=== PATIENT | female | born 1955 | race Caucasian/White ===

== ENCOUNTER 2017-06-19 00:05 | Emergency (ER) | payer BC, OTHER ==
[~2017-06-19] VITALS: Ht 160 cm; Wt 65.3 kg
--- NOTE | ~2017-06-19 | DIAG ---
[facility] [address] [facility] [address] [place], [place] [address] Draft DATE OF STUDY: 06/19/2017 STUDY: Holter monitor. INDICATION: This is a 61-year-old female referred for evaluation of palpitations. SUMMARY REPORT: The patient was monitored for 48 hours and 13 minutes. There was total of 10 hours of artifact, total beats recorded 130,956 beats. The patient was predominantly in sinus rhythm with average heart rate of 56 beats per minute. Minimum heart rate 42 beats per minute, noted to be sinus bradycardia and maximum heart rate of 100 beats per minute. Arrhythmia was noted as rare premature atrial and ventricular contractions. CONCLUSION: 1. This is a 48-hour Holter monitor, however, there was 10 hours of artifact that were removed, total beats recorded 130,956 beats. 2. The patient was predominantly in sinus rhythm with poor correlation between patient triggered events and recorded arrhythmia. 3. Average heart rate was 56 beats per minute, minimum heart rate 42 beats per minute, and maximum heart rate 100 beats per minute. 4. Arrhythmia was noted as rare premature atrial and ventricular contraction. Darnell Giron MD MA/NICOLAS /[id number] LITA Bhakta M.D. PATIENT NAME: NATE NOLAND DIAGNOSTIC STUDY DATE OF : 51 PHYSICIAN: DARNELL GIRON MD REPORT #: [id number] REPORT IS CONFIDENTIAL AND NOT TO BE RELEASED WITHOUT AUTHORIZATION
[~2017-06-19 00:05] MED LIST: ESTRADIOL2 MG PO; HYDROXYZINE HCL25 MG PO; LEVOTHYROXINE125 MCG PO; LIPITOR40 MG PO; LORAZEPAM1 MG PO; NEURONTIN600 MG PO; OMEPRAZOLE20 MG PO; OXYCODONE HCL10 MG PO; OXYCONTIN10 MG PO; ZOLPIDEM TARTRA10 MG PO
--- NOTE | 2017-06-20 17:48 | EKG ---
[facility] [address] [facility] [place] [address] Signed Normal sinus rhythm Possible Left atrial enlargement Borderline ECG No previous ECGs available Confirmed by GABI RAPP MD ([id number]) on 06/20/2017 5:47:54 PM Electronically Signed By: GABI RAPP MD 06/20/17 1748 PATIENT NAME: NATE NOLAND Electrocardiogram DATE OF : 51 PHYSICIAN: GABI RAPP MD REPORT #: [id number] REPORT IS CONFIDENTIAL AND NOT TO BE RELEASED WITHOUT AUTHORIZATION
== END 2017-06-19 03:54 | disposition home or self-care (01) ==
LOC: ED 00:05
DX: R55 Syncope and collapse (principal); S09.90XA Unspecified injury of head, initial encounter; E03.9 Hypothyroidism, unspecified; E78.00 Pure hypercholesterolemia, unspecified; F17.200 Nicotine dependence, unspecified, uncomplicated; Z88.8 Allergy status to other drugs, medicaments and biological substances; Z79.899 Other long term (current) drug therapy; W19.XXXA Unspecified fall, initial encounter
CPT/HCPCS: 70450; 80053; 83735; 84484; 85025; 85610; 85730; 93005; 93010; 93225; 93226; 93227; 99284

== ENCOUNTER 2018-02-12 10:05 | Day surgery (SDC) | payer BC ==
[~2018-02-12] VITALS: Ht 160 cm; Wt 61.7 kg
--- NOTE | 2018-02-12 12:00 | NUR ---
02/12/18 Shelby Fisher 1152- PT ARRIVES TO PACU WITH EYES CLOSED, ASLEEP. PT RESPONDS TO VERBAL STIMULI AND OPENS EYES. PT ABLE TO ANSWER QUESTIONS AND STATES THAT SHE DOES NOT HAVE PAIN OR NAUSEA. PT STABLE ON RA SATING 90-93%.
--- NOTE | 2018-02-13 09:08 | OR ---
[facility] [address] [place], [place] [address] Signed DATE OF OPERATION: 02/12/2018 SURGEON: Reanna Hicks MD PREOPERATIVE DIAGNOSIS: Persistent weight loss and poor appetite. POSTOPERATIVE DIAGNOSES: 1. Prepyloric antral gastritis. 2. Normal-appearing colon. PROCEDURES PERFORMED: 1. Esophagogastroduodenoscopy with biopsy. 2. Total colonoscopy. ANESTHESIA: Intravenous sedation fentanyl 200 mcg, Versed 10 mg. INDICATION: This 62-year-old white woman is a patient of Dr. Bhakta and well known to me from the past. She works as an emergency room nurse, semi-retired now. She continues to smoke one pack of cigarettes a day. In the past six months she has lost about 30 pounds of weight. She has had decreased appetite, but no associated abdominal pain. She feels "sick at the thought of food." She has had some iron deficiency, which has been treated with iron medication, which improved her symptoms. She has chronic back pain and spinal infusion device with Dilaudid. This is being weaned. She still smokes a pack of cigarettes a day, though she underwent a rather extensive evaluation in the past few years for mediastinal lymphadenopathy and periesophageal lymphadenopathy, which seemed to resolve with further followup. She is admitted at this time to undergo upper endoscopy, and colonoscopy to better characterize her current symptoms. She understands the risks of bleeding, infection, and perforation related to colonoscopy and upper endoscopy and wished to proceed. FINDINGS: Upper endoscopy showed no abnormality other than mild prepyloric antral gastritis. She had no ulceration or neoplasm. No sign of lymphoma. Colonoscopy showed a well prepped bowel. There was no sign of polyps, diverticular formation, colitis, or cancer. Electronically Signed By: REANNA HICKS MD 02/13/18 0908 PATIENT NAME: NATE NOLAND OPERATIVE REPORT DATE OF : 51 REPORT #: [id number] PHYSICIAN: REANNA HICKS MD PCP: KALA BHAKTA MD REPORT IS CONFIDENTIAL AND NOT TO BE RELEASED WITHOUT AUTHORIZATION [facility] [address] [place], [place] [address] Signed She does have a fair amount of tolerance to pain medication on the basis of her infusion device as may have been expected. DESCRIPTION OF PROCEDURE: The patient was brought to the endoscopy suite, and given topical Hurricaine spray hypopharyngeal anesthesia, and placed in lateral decubitus position, and given intravenous sedation to the point of slurred speech, and nystagmus. An Olympus video upper endoscope was passed in the hypopharynx after placement of a bite block. Esophagus status length was normal. Scope was advanced to the stomach, which was insufflated with air. Gastric juices suctioned free. There was no sign of bile within the stomach. The pylorus appeared reasonably normal. Scope was passed through into the duodenum, which was normal. Scope was withdrawn in the prepyloric antrum, had mild antral gastritis, but not much and certainly no ulceration or neoplasm. Biopsies were obtained for both PATRICIA and pathologic testing. Retroflexed view was undertaken showing a reasonable flap valve in proximal stomach, otherwise normal. Scope was straightened, withdrawn to the distal esophagus, and plans made for colonoscopy. The table was rotated and additional sedation given and digital rectal examination undertaken, which was normal. An Olympus video colonoscope was passed in the rectum and manipulated throughout the colon. She had a fair amount of discomfort requiring additional sedation no doubt related to tolerance from her usual medications of Duramorph through infusion. Ultimately, the right colon was entered and the cecum was visualized, but not intubated proper. Further attempts at intubation were not likely possible, and definitely not well tolerated given her resistance to pain medications. The scope was withdrawn from that point and, examination throughout showed no sign of abnormality. The scope was removed, and the patient was taken to recovery room in good condition. CONCLUDING DIAGNOSIS: Mild amount of prepyloric antral gastritis. No sign of ulcer or neoplasm. Normal colon. PLAN: On short-term we will recommend Prilosec 20 mg p.o. daily. An evaluation of ultrasound and CCK-HIDA test has been outlined, and will confirm that those tests are done. MD CLINT Sahu/MODL Electronically Signed By: REANNA HICKS MD 02/13/18907 PATIENT NAME: NATE NOLAND OPERATIVE REPORT DATE OF : 51 REPORT #: [id number] PHYSICIAN: REANNA HICKS MD PCP: KALA BHAKTA MD REPORT IS CONFIDENTIAL AND NOT TO BE RELEASED WITHOUT AUTHORIZATION [address] [address] Signed /[id number] cc: Dr. Bhakta. Copies: ~ Electronically Signed By: REANNA HICKS MD 02/13/18 0908 PATIENT NAME: NATE NOLAND OPERATIVE REPORT DATE OF : 51 REPORT #: [id number] PHYSICIAN: REANNA HICKS MD PCP: KALA BHAKTA MD REPORT IS CONFIDENTIAL AND NOT TO BE RELEASED WITHOUT AUTHORIZATION
== END 2018-02-12 12:40 | disposition home or self-care (01) ==
LOC: OPS 10:05 → DS 10:05 → OPS 11:00 → DS 13:00
PROVIDERS: Surgery
PROC: 0DJD8ZZ Inspection of Lower Intestinal Tract, Via Natural or Artificial Opening Endoscopic (ICD-10-PCS; principal; 2018-02-12 11:00)
PROC: 0DB78ZX Excision of Stomach, Pylorus, Via Natural or Artificial Opening Endoscopic, Diagnostic (ICD-10-PCS; 2018-02-12 11:00)
DX: K29.50 Unspecified chronic gastritis without bleeding (principal); R63.4 Abnormal weight loss; R63.0 Anorexia; R59.0 Localized enlarged lymph nodes; E11.9 Type 2 diabetes mellitus without complications; E03.9 Hypothyroidism, unspecified; E78.5 Hyperlipidemia, unspecified; F17.210 Nicotine dependence, cigarettes, uncomplicated; Z98.890 Other specified postprocedural states; Z79.899 Other long term (current) drug therapy; Z88.5 Allergy status to narcotic agent; Z88.8 Allergy status to other drugs, medicaments and biological substances
CPT/HCPCS: 99153; G0500; J0690; J2250; J3010; J7120

== ENCOUNTER 2021-03-24 12:37 | Emergency (ER) | payer MEDICARE, OTHER ==
[~2021-03-24] VITALS: Ht 160 cm; Wt 61.7 kg
--- OUTSIDE RECORDS SUMMARY | 2021-03-24 12:40 | XMS ---
PreManage Notification: NATE NOLAND Security Clinic Administrator Events No recent Security Events currently on file CRITERIA MET - [facility] CARE PROVIDERS There are no care providers on record at this time. Reynaldo has no Care Guidelines for this patient. Cecilia VISIT COUNT (12 MO.) 1 SU[facility]TE Young TOTAL 1 NOTE: Visits indicate total known visits. ED/C VISIT TRACKING (12 MO.) 03/24/2021 12:38 [facility] [place] TYPE: Emergency COMPLAINT: - FLU SYMPTOMS INPATIENT VISIT TRACKING (12 MO.) No inpatient visits to display in this time frame [email or web address]
--- NOTE | 2021-03-25 04:58 | EKG ---
[facility] [address] [facility] [place] [address] Signed Normal sinus rhythm Rightward axis ST \T\ T wave abnormality, consider anterolateral ischemia Abnormal ECG When compared with ECG of 19-JUN-2017 00:14, Nonspecific T wave abnormality now evident in Inferior leads T wave inversion more evident in Anterolateral leads Confirmed by DESEAN CREWS MD ([id number]) on 03/25/2021 4:58:31 AM Electronically Signed By: DESEAN CREWS MD 03/25/21 0458 PATIENT NAME: NATE NOLAND Electrocardiogram DATE OF : 51 PHYSICIAN: DESEAN CREWS MD REPORT #: [id number] REPORT IS CONFIDENTIAL AND NOT TO BE RELEASED WITHOUT AUTHORIZATION
[2021-03-25] MEDS ORDERED: LEXAPRO10 MG PO (13:01)
[2021-03-25] MEDS ORDERED: ONDANSETRON ODT8 MG PO (13:01)
== END 2021-03-25 13:28 | disposition home or self-care (01) ==
LOC: ED 12:37
PROC: 0T9B30Z Drainage of Bladder with Drainage Device, Percutaneous Approach (ICD-10-PCS; principal; 2021-03-24)
DX: F32.9 Major depressive disorder, single episode, unspecified (principal); L98.9 Disorder of the skin and subcutaneous tissue, unspecified; R50.9 Fever, unspecified; E03.9 Hypothyroidism, unspecified; E78.00 Pure hypercholesterolemia, unspecified; F17.200 Nicotine dependence, unspecified, uncomplicated; Z90.710 Acquired absence of both cervix and uterus; Z90.89 Acquired absence of other organs; Z88.8 Allergy status to other drugs, medicaments and biological substances; Z79.899 Other long term (current) drug therapy; Z20.822 Contact with and (suspected) exposure to COVID-19
CPT/HCPCS: 51701; 70450; 71045; 80053; 81001; 82140; 83605; 84443; 85025; 87040; 93005; 93010; 99285-25; A9270; C9803; J2405; J2930; J7030; J7121; U0003

== ENCOUNTER 2021-03-30 13:13 | Emergency (ER) | payer MEDICARE, OTHER ==
[~2021-03-30] VITALS: Ht 160 cm; Wt 56.2 kg
[~2021-03-30 13:13] MED LIST changes: +LEXAPRO10 MG PO; +ONDANSETRON ODT8 MG PO
--- OUTSIDE RECORDS SUMMARY | 2021-03-30 13:20 | XMS ---
PreManage Notification: NAET NOLAND Security Area Representative Events No recent Security Events currently on file CRITERIA MET - [facility] - 2 Visits in 30 Days CARE PROVIDERS There are no care providers on record at this time. Reynaldo has no Care Guidelines for this patient. Cecilia VISIT COUNT (12 MO.) [facility] TOTAL 2 NOTE: Visits indicate total known visits. ED/[facility] VISIT TRACKING (12 MO.) [facility] [place] [facility] COMPLAINT: - FALL, BACK PAIN 03/24/2021 12:[address] [facility] [place] TYPE: Emergency COMPLAINT: - FLU SYMPTOMS DIAGNOSES: - Hypothyroidism, unspecified - Acquired absence of other organs - Major depressive disorder, single episode, unspecified - Fever, unspecified - Disorder of the skin and subcutaneous tissue, unspecified - Allergy status to other drugs, medicaments and biological substances - Pure hypercholesterolemia, unspecified - Nicotine dependence, unspecified, uncomplicated - Other intermodal owner operator truck driver (current) drug therapy - Acquired absence of both cervix and uterus INPATIENT VISIT TRACKING (12 MO.) No inpatient visits to display in this time frame [id number]
== END 2021-03-30 16:31 | disposition home or self-care (01) ==
LOC: ED 13:13
DX: S09.90XA Unspecified injury of head, initial encounter (principal); M54.9 Dorsalgia, unspecified; F17.200 Nicotine dependence, unspecified, uncomplicated; R10.31 Right lower quadrant pain; Z90.710 Acquired absence of both cervix and uterus; Z90.89 Acquired absence of other organs; Z88.8 Allergy status to other drugs, medicaments and biological substances; Z79.899 Other long term (current) drug therapy; W17.89XA Other fall from one level to another, initial encounter
CPT/HCPCS: 70450; 71260; 72125; 74177; 80053; 81001; 85025; 99284-25; Q9967

== ENCOUNTER 2021-04-03 14:17 | Inpatient (IN) | payer MEDICARE ==
[~2021-04-03] VITALS: Ht 160 cm; Wt 50.1 kg
--- OUTSIDE RECORDS SUMMARY | 2021-04-03 14:24 | XMS ---
PreManage Notification: NATE NOLAND Security Sql Server Consultant Events No recent Security Events currently on file CRITERIA MET - [facility] - 2 Visits in 30 Days CARE PROVIDERS [facility] 04/01/2021-Current PHONE: [phone] Reynaldo has no Care Guidelines for this patient. Cecilia VISIT COUNT (12 MO.) 3 [facility] TOTAL 3 NOTE: Visits indicate total known visits. ED/UCC VISIT TRACKING (12 MO.) 04/03/2021 14:17 [facility] [place] TYPE: Emergency COMPLAINT: - NAUSEA 03/30/2021 13:13 [facility] [place] TYPE: Emergency COMPLAINT: - FALL, BACK PAIN DIAGNOSES: - Other retirement (current) drug therapy - Unspecified injury of head, initial encounter - Acquired absence of both cervix and uterus - Nicotine dependence, unspecified, uncomplicated - Other fall from one level to another, initial encounter - Acquired absence of other organs - Right lower quadrant pain - Allergy status to other drugs, medicaments and biological substances - Dorsalgia, unspecified 03/24/2021 12:38 [facility] [place] TYPE: Emergency COMPLAINT: - FLU SYMPTOMS DIAGNOSES: - Hypothyroidism, unspecified - Acquired absence of other organs - Major depressive disorder, single episode, unspecified - Fever, unspecified - Disorder of the skin and subcutaneous tissue, unspecified - Allergy status to other drugs, medicaments and biological substances - Pure hypercholesterolemia, unspecified - Nicotine dependence, unspecified, uncomplicated - Other supervisor intermediates (current) drug therapy - Acquired absence of both cervix and uterus INPATIENT VISIT TRACKING (12 MO.) No inpatient visits to display in this time frame [id number]
--- NOTE | 2021-04-03 20:25 | NUR ---
PT ARRIVED TO ROOM 126 AT 1930 VIA STRETCHER. PT ABLE TO AMBULATE TO BATHROOM TO VOID (400ML YELLOW URINE) AND THEN BACK TO BED. SHE IS SLIGHTLY DROWSY WITH A FLAT AFFECT, BUT ORIENTED. DENIES PAIN. LUNGS CLEAR, RA. HR REGULAR, RATE ALLEY IN 40'S. BOWEL TONES HYPOACTIVE, REPORTS NAUSEA, PRN ZOFRAN GIVEN. PT HAD 150ML GREEN EMESIS, PRN PHENERGAN GIVEN (6.25MG GIVEN TO TITRATE TO FULL DOSE IT HAD BEEN RECENTLY GIVEN IN E.D.) SKIN COOL, SCATTERED ABRASIONS AND SCABS NOTED TO BUE. IV INTACT AND PATENT. LR INFUSION STARTED AT 125ML/HR. POTASSIUM RIDER FINISHING FROM E.D. PT HAS CALL LIGHT WITHIN REACH, DENIES FURTHER NEEDS AT THIS TIME.
--- NOTE | 2021-04-03 21:15 | NUR ---
PT HAD 200ML GREEN EMESIS, 1MG IV ATIVAN GIVEN FOR NAUSEA.
--- NOTE | 2021-04-03 21:58 | NUR ---
IN TO START NEXT INFUSION OF POTASSIUM. PT CURRENTLY SLEEPING SOUNDLY, NO APPARENT DISTRESS. RESPIRATIONS EVEN AND UNLABORED. HR REMAINS ALLEY IN 40'S, OTHERWISE VITAL SIGNS WNL.
--- NOTE | 2021-04-03 23:33 | NUR ---
IN TO START NEXT POTASSIUM INFUSION. PT STIRRING IN BED AND MOANING. PT DENIES PAIN OR NAUSEA AT THIS TIME, BUT STATES SHE NEEDS TO GO TO BATHROOM. PT MUCH MORE UNSTEADY ON FEET AT THIS TIME, IS NOW 1-PA. PT STUMBLED, THIS RN ABLE TO INTERVENE TO PREVENT PT FROM FALLING. PT VOIDED 350ML YELLOW URINE AND ASSISTED BACK TO BED. ASSESSMENT COMPLETED. IV REMAINS INTACT AND PATENT. CALL LIGHT AND BELONGINGS WITHIN REACH.
--- NOTE | 2021-04-04 01:28 | NUR ---
PT BED ALARM SOUNDING, FOUND PT WALKING TOWARDS BATHROOM. ASSISTED PT TO BATHROOM TO VOID. PT STATES "I STILL FEEL BAD" UNABLE TO VERBALIZE SPECIFIC COMPLAINT. ASSISTED PT BACK TO BED X1 ASSIST. BED ALARM ON, CALL LIGHT IN REACH, SIDE RAILS UP X2. INSTRUCTED PT TO CALL RN WHEN NEEDS ASSIST, VERBALIZED UNDERSTANDIGNG.
--- NOTE | 2021-04-04 02:05 | NUR ---
IN TO CHECK ON PT WHO WAS AWAKE WHEN I ENTERED ROOM. PT STATES SHE IS FEELING OK WHEN SHE ISN'T MOVING. PT DENIES REQUESTS OR NEEDS AT THIS TIME. BED ALARM REMAINS ON FOR SAFETY. POTASSIUM INFUSIONS COMPLETED. IVF INFUSING WNL, IV SITE INTACT.
--- NOTE | 2021-04-04 03:15 | NUR ---
RESPONDED TO BED ALARM. PT REPORTS NEEDING TO USE BATHROOM. WALKED INTO BATHROOM WITH SBA, PT MORE STEADY ON FEET AT THIS TIME. PT VOIDED 450ML YELLOW URINE AND PERFORMED OWN PERICARE. PT NOW BACK IN BED. PT REPORTS NAUSEA, PRN ZOFRAN GIVEN. IV REMAINS INTACT, FLUIDS INFUSING WNL. DISCUSSED PLAN FOR ASSESSMENT AT 0400 AND WILL REASSESS NAUSEA AT THAT TIME. PT DENIES FURTHER NEEDS. BED ALARM ON FOR SAFETY.
--- NOTE | 2021-04-04 04:05 | NUR ---
IN TO CHECK ON PT WHO IS CURRENTLY SLEEPING SOUNDLY. NO APPARENT DISTRESS, RESPIRATIONS EVEN AND UNLABORED. NO APPARENT DISTRESS. BED ALARM REMAINS ON FOR SAFETY.
--- NOTE | 2021-04-04 04:33 | NUR ---
IN TO HANG A NEW BAG OF IVF, PT WOKEN UP BY IV PUMP ALARMING. PT REPORTS NAUSEA, PRN PHENERGAN GIVEN. PT DENIES FURTHER REQUESTS AT THIS TIME.
--- NOTE | 2021-04-04 05:53 | NUR ---
PLEBOTOMIST LET THIS RN KNOW THAT PT NEEDED TO USE BATHROOM. PT UP WITH SBA, REMAINS STEADY ON FEET AT THIS TIME, TO BATHROOM. VOIDED 450ML YELLOW URINE AND PROVIDED OWN PERICARE BEFORE RETURNING TO BED. PT REPORTS NAUSEA IS IMPROVED SINCE RECEIVING PHENERGAN. DENIES FURTHER NEEDS AT THIS TIME, CALL LIGHT WITHIN REACH. BED ALARM SET FOR SAFETY.
--- NOTE | 2021-04-04 07:33 | NUR ---
REPORT RECEIVED FROM TIFFANIE REINOSO. THIS RN ASSUMING CARE OF PT.
--- NOTE | 2021-04-04 07:45 | NUR ---
CALL LIGHT ANSWERED, SBA WITH PATIENT TO BR FOR VOID. PATIENT VERY NAUSEOUS, BACK TO BED. WARM BLANKETS PROVIDED. CALL LIGHT IN REACH
--- NOTE | 2021-04-04 07:45 | NUR ---
THIS RN TO ROOM TO CHECK ON PT. 1 PERSON ASSIST UP TO RESTROOM TO VOID, SHED BOSS ASSISTING PT. 1 PERSON ASSIST BACK TO BED. PT CONTINUES TO REPORT NAUSEA. PT DENIES PAIN. MEDICATION GIVEN. NO ADDITIONAL REQUESTS OR COMPLAINTS. BED ALARM ON. CALL LIGHT WITHIN REACH. BED RAILS UP.
--- NOTE | 2021-04-04 08:30 | NUR ---
MORNING ASSESSMENT AND MEDICAITON DUE. PT RESTING IN BED WITH EYES CLOSED. PT AWAKENS TO MOVEMENT IN THE ROOM. PT CONTINUES TO REPORT NASUEA, SEE MAR FOR MEDICATION GIVEN. PT REPORTS 3/10 BACK PAIN, IMPLANTED DILAUDID PAIN PUMP NOTED IN PTS ABDOMEN, AT RIGHT UPPER QUADRANT. PT REPORTS THIS IS MANAGED BY HER DOCTORS IN [place]. PT DENIES NEED FOR ADDITONAL PAIN CONTROL AT THIS TIME. PT ORIENTED TO ALL, REMAINS DROWSY REPORTING "I JUST WANT TO SLEEP. FLAT AFFECT NOTED. PT UNSTEADY ON HER FEET. BED ALARM ON FOR SAFETY. LUNG SOUNDS CLEAR. HEART TONES REGULAR WITH SINUS BRADYCARDIA NOTED ON MONITOR. HEART RATE 40-50'S. BLOOD PRESSURE REMAINS ELEVATED, MD AWARE. PT REPORTS SHE HAS NOT HAD ISSUES IN THE PAST WITH HIGH BLOOD PRESSURE. SKIN NOW WARM TO TOUCH, PT HOWEVER REPORTS FEELING COLD. PT REPORTS HISTORY OF CONSTIPATION, DENIES FEELINS OF CONSTIPATION AT THIS TIME. BOWEL TONES REMAIN HYPOACTIVE. PT REPORTS OVER ALL SHE FEELS "MAYBE A LITTLE BIT BETTER." BACETRACIN OINMENT APPLIED TO SORES ON LEFT AND RIGHT ELBOWS. PT DENIES ADDITIONAL REQUESTS OR COMPLAINTS, IS ABLE TO TAKE HER PO MEDICATION. HEAD OF BED ELEVATED TO 25 DEGREES. BED RAILS UP. BED ALARM ON. CALL LIGHT WITHIN REACH.
--- NOTE | 2021-04-04 08:57 | NUR ---
JESSIE, PTS SISTER CALLED FOR UPDATE. JESSIE UPDATED ON PT STATUS AND PLAN OF CARE. JESSIE VERBALIZES UNDERSTANDING OF PLAN OF CARE AND STATES HER QUESTIONS HAVE BEEN ANSWERED. JESSIE ALSO STATES SHE WILL BE BY LATER TODAY TO VISIT WITH PT.
--- NOTE | 2021-04-04 09:25 | NUR ---
THIS AIRCRAFT FUSELAGE FRAMER IN ROOM FOR SBA TO BR. PATIENT STEADY ON HER FEET. BACK TO BED, WARM BLANKET PROVIDED, CALL LIGHT IN EASY REACH.
--- NOTE | 2021-04-04 09:38 | NUR ---
THIS RN TO ROOM TO CHECK ON PT. PT TALKING ON PHONE. PT DENIES PAIN AND REPORTS NAUSEA HAS IMPROVED. PT DENIES ADDITIONAL REQUESTS OR COMPLAINTS. PT UPATED ON PLAN OF CARE AND TRANSFER TO MED/SURG FLOOR. PT VERBALIZES UNDERSTANDING AND STATES HER QUESTIONS HAVE BEEN ANSWERED. BED RAILS UP. CALL LIGHT WITHIN REACH. BED ALARM ON.
--- NOTE | 2021-04-04 09:55 | NUR ---
PHYSICAL THERAPY TO BEDSIDE TO WORK WITH PT. IV FLUSHED AND SALINE LOCKED PER PROTOCOL, ALCOHOL CAP APPLIED. NO ADDITIONAL REQUESTS OR COMPLAINTS. HEAR TRATE 70-90 WITH ACTIVITY. PT AMBULATING IN HALLWAY WITH PHYSICAL THERAPIST, STEADY ON FEET AT THIS TIME.
--- NOTE | 2021-04-04 10:07 | NUR ---
REPORT CALLED TO TIFFANIE JOY ON MED/SURG. RUFINO STATES HER QUESTIONS HAVE BEEN ANSWERED. GRADY, PHYSICAL THERAPIST, FINISHED WORKING WITH PT. REPORTS PT IS CLEARED FROM PHYSICAL THERAPY, STEADY ON FEET. PT TRANSFERED TO MED/SURG, PT WAS ABLE TO AMBULATE TO HER ROOM. ALL BELONGINGS TRANSFERED WITH PT.
--- NOTE | 2021-04-04 10:18 | NUR ---
PT TRANSFERED FROM [facility]U TO [facility], PATIENT ABLE TO AMBULATE TO ROOM, UPON ARRIVAL COMPLAINING OF NAUSEA PER PATIENT REQUEST PHENEGRAN GIVEN, VSS, NO OTHER NEEDS AT THE MOMENT, CALL LIGHT WITHIN REACH.
--- NOTE | 2021-04-04 12:00 | NUR ---
PATIENT STATES SHE FEELS BETTER AND IS NOT NAUSEOUS ANY MORE, WILLING TO TRY HAVING SOME BROTH AND JELLO. DENIES ANY OTHER NEED AT THE MOMENT
--- NOTE | 2021-04-04 14:46 | NUR ---
RN IN ROOM TO ANSWER CALL LIGHT, ASSISTED PATIENT TO BATHROOM TO VOID, STARTING TO FEEL SLIGHTLY SICK PRN ZOFRAN ADMINISTERED, NO OTHER NEEDS AT THE MOMENT
--- NOTE | 2021-04-04 17:17 | NUR ---
iv leaking at site attempted to redress iv and tighten connections still leaking, patient states she is a hard stick and they struggled to place that line would perfer if they tried to start it with ultrasound
--- NOTE | 2021-04-04 18:00 | NUR ---
RN IN ROOM TO GIVE PT PRN PHENGRAN FOR NAUSEA BAM PLACED NEW IV IN R UPPER ARM, IV FLUIDS RESTARTED, NEW BP MEDS AMINISTERED PATIENT EDUCATED ON NEW MEDS.
--- NOTE | 2021-04-04 20:00 | NUR ---
PT RESTING IN BED REPORTS NAUSEA, ATIVAN 1MG IV GIVEN PRN #3 OPTION OTHER OPTIONS NOT AVAILABLE AT THIS TIME. PT HAS NO EMESIS, V/S STABLE AT THIS TIME. SHE HAS NO OTHER CONCERNS OR REQUESTS AT THIS TIME.
--- NOTE | 2021-04-04 20:28 | EKG ---
[facility] [address] [facility] [place] [address] Signed Sinus bradycardia Otherwise normal ECG When compared with ECG of 24-MAR-2021 13:01, Vent. rate has decreased BY 27 BPM Non-specific change in ST segment in Inferior leads Nonspecific T wave abnormality no longer evident in Inferior leads T wave inversion less evident in Anterolateral leads Confirmed by BERTO PADILLA DO ([id number]) on 04/04/2021 8:28:42 PM Electronically Signed By: BERTO PADILLA DO 04/04/212027 PATIENT NAME: NATE NOLAND Electrocardiogram DATE OF : 51 PHYSICIAN: BERTO PADILLA DO REPORT #: [id number] REPORT IS CONFIDENTIAL AND NOT TO BE RELEASED WITHOUT AUTHORIZATION
--- NOTE | 2021-04-04 21:58 | NUR ---
PT RESTING IN BED EYES CLOSED, RELAXED POSTURE, AND FACILA EXPRESSION, RR EVEN AT 17 BPM, NO DISTRESS NOTED. PT NOT ALERT TO RN INTO ROOM TO INCREASE IVF RATE TO 125ML/HR PER ORDER.
--- NOTE | 2021-04-05 00:05 | NUR ---
PT CALLED TO REQUEST HELP TO BATHROOM. PT STANDBY ASSIST TO BATHROOM, SHE VOIDED 600ML YELLOW URINE, SHE ASKED "CAN I HAVE THE PHENERGAN NOW?" THIS RN CHECKED THE MAR THE ZOFRAN IS AVAILABLE, DISCUSSED WITH PT THAT I WOULD ADMINISTER THE ZOFRAN FIRST AND IF THAT IS NOT AFFECTIVE THE PHENERGAN WILL BE AVAILABLE. PT AGREES. WARM BLANKET PROVIDED.
--- NOTE | 2021-04-05 01:44 | NUR ---
PT CALLED NURSES STATION TO REPORT BEEPING NOISE IN ROOM. RN INTO ROOM, IVF COMPLETE, NEW BAG OF LR REPLACED AND STARTED, V/S AND ASSESSMENT COMPLETE.
--- NOTE | 2021-04-05 02:27 | NUR ---
PT CALLED TO REPORT BEEPING IN HER ROOM, IV PUMP BATTERY NOT CHARGING, REPLACED MACHINE, PT REPORTS SHE IS HAVING NAUSEA AGAIN, RN SAID "I WILL GO GET THE PHENERGAN" PT SAID "PLEASE, I DONT WANT THIS TO GET OUT OF HAND AGAIN" RN RETURN TO ROOM PT HAD EMESIS BAG AT HAND, SHE HAD ONE SMALL DRY HEAVE RN ADMINISTERING PHENERGAN 12.5 MG DILUTED IN 20ML OF NS SLOW PUSH. NO EMESIS NOTED IN BAG. PT RELAXED BACK IN BED BY FINISH OF IV MED PUSH. NO OTHER CONCERNS OR REQUESTS AT THIS TIME.
--- NOTE | 2021-04-05 04:03 | NUR ---
PT CALLED NURSES STATION TO REQUEST WITH ASSISTANCE TO THE BATHROOM, ONE PERSON STANDBY ASSIST. VOIDED 500ML CLEAR YELLOW URINE, PT VERBALIZED NO OTHER NEEDS AT THIS TIME, SHE GAVE NO COMPLAINTS OF NAUSEA OR PAIN.
--- NOTE | 2021-04-05 05:08 | NUR ---
PT HAS BEEN UP TO BATHROOM 3 TIMES OVER SHIFT, VOIDING WELL, INCREASE NAUSEA WITH ACTIVITY, ATIVAN, ZOFRAN AND PHENERGAN GIVEN ONCE EACH OVER SHIFT FOR NAUSEA, SHE HAD ON EPISODE OF DRY HEAVE WITH NO EMESIS, PT HAS SLEPT INTERMITTENLY OVER SHIFT. VOIDING QUANTITY SUFFICIENT. PT HAD BM LAST ON 04/03/21.
--- NOTE | 2021-04-05 06:29 | NUR ---
PT REQUESTS NAUSEA MEDICATION, PT ADMINISTERED ZOFRAN AT THIS TIME 4MG IV PRN. V/S DONE, FOCUS ASSESSMENT COMPLETE. PT VERBALIZED NO OTHER NEEDS OR CONCERNS AT THIS TIME.
--- NOTE | 2021-04-05 07:10 | NUR ---
report recieved from machine quilt stuffer rn, patient resting in bed, continues to have nausea overnight but no emesis, on tele, denies any need at the moment.
--- NOTE | 2021-04-05 08:30 | NUR ---
rn in room to do morning assessment and give patietn morning meds, patient sitting up in bed, only took a couple bites of breakfast and states she feels nauseous, prn phenegran given, no other needs at the moment.
--- NOTE | 2021-04-05 08:59 | NUR ---
Patient refused warm wash cloth part of AM care.
--- NOTE | 2021-04-05 10:18 | NUR ---
rn in room to assist pt to shower, iv wrapped and shower set up, pt ind in shower.
--- NOTE | 2021-04-05 10:56 | NUR ---
Patient is in bed with call light in reach.
--- NOTE | 2021-04-05 12:08 | NUR ---
PT ALERT, ORIENTED AND STATED SHE IS JUST NOT FEELING WELL. WHEN SHE WAKES UP HAS TROUBLE WITH NAUSEA. PT IS WAITING FOR MORE TEST RESULTS. SHE THINKS HER THYROID IS "ALL MESSED UP". PT DISCOURAGED, MENTIONED OTHER ISSUES THAT ARE ADDING A LOT OF STRESS TO HER LIFE. GAVE Kathy PEÑAPOST AND HAD PRAYER WITH PT. GAVE ENCOURAGEMENT, WILL FOLLOW NEEDED
--- NOTE | 2021-04-05 12:10 | NUR ---
PT complaining of nausea despite getting reglan prior to lunch,prn zofran provided only ate oranges for lunch encouraged ensure protien drink patient dislikes the taste.
--- NOTE | 2021-04-05 13:59 | NUR ---
rn in to round on pt, patient sitting up in bed tech in room assisting patient to bathroom, no other needs at the moment
--- NOTE | 2021-04-05 14:23 | NUR ---
Patient is in bed with call light in reach. Patient said she has no requests. Vitals, I&Os are complete.
--- NOTE | 2021-04-05 15:15 | NUR ---
rn in toom to administer 1500 meds, patient requesting to go for a walk, patient ambulated around unit sba toleralted well
--- NOTE | 2021-04-05 18:35 | NUR ---
rn in room to round on pt, patient in bed resting, complianing of nausea prn ativan given, able to tolerate dinner tray and ate most, no emesis, states headache is better no other needs at the moment
--- NOTE | 2021-04-05 19:30 | NUR ---
PATIENT RESTING QUIELTY IN BED WATCHING TV. THIS RN RECEIVING REPORT FROM TIFFANIE JOY. PATIENT HAS NO CURRENT CARE NEEDS AT THIS ITMA. CALL LIGHT IS IN REACH.
--- NOTE | 2021-04-05 21:40 | NUR ---
PATIENT CALLED AND WANTS MEDICATION FOR NAUSEA AND 4MG IV ZOFRAN GIVEN ALONG WITH PATIENT'S OTHER PO MEDS THAT PATIENT TOOK WITHOUT DIFFICULTY. PATIENT DENIES NEED FOR STANDBY ASSISTANCE AND HAS BEEN GOING TO THE RESTROOM INDEPENDENTLY AND IS UP TO THE BATHROOM AT THIS TIME. PATIENT WILL CALL IF SHE NEEDS ANYTHING. ICE WATER REFILLED.
--- NOTE | 2021-04-05 22:25 | NUR ---
PATIENT CALLED AND REMAINS NAUSEATED AND HAS ASKED TO GET EVERYTHING SHE MAY BE DUE FOR TO STOP THE NAUSEA. IV PHENERGAN IN 20MLS SALINE ON IV PUMP OVER 10MIN GIVEN WELL 1MG IV ATIVAN. PATIENT'S IV SITE WNL AND FLUSHES WELL POST MEDICATION AND REMAINS ON A CONTINOUS RATE. PATIENT REQUESTING LIGHTS DOWN AND DOES NOT WANT TO BE DISTURBED UNLESS NECESSARY SO SHE CAN SLEEP. CALL LIGHT IS IN REACH AND URINE IN BATHROOM DUMPED AND RECORDED. PATIENT HAS NO OTHER CARE NEEDS AT THIS TIME.
--- NOTE | 2021-04-05 23:23 | NUR ---
PATIENT RESTING QUIETLY IN LOW FOWLERS POSITION. RESPIRATIONS ARE REGULAR AND EVEN, EYES ARE CLOSED, AND CALL LIGHT IS IN REACH. NO CURRENT CARE NEEDS ARE NOTED.
--- NOTE | 2021-04-06 01:30 | NUR ---
PATIENT RESTING IN LOW FOWLERS POSITION, RESPIRATIONS ARE REGLAR AND EVEN, EYES ARE CLOSED, AND CALL LIGHT IS IN REACH. NO CARE NEEDS NOTED AT THIS TIME.
--- NOTE | 2021-04-06 02:38 | NUR ---
PATIENT RESTING QUIETLY IN LOW FOWLERS POSITION TURNED TOWARDS HER RIGHT SIDE. PATIENT'S EYES ARE CLOSED AND RESPIRATIONS ARE REGULAR AND EVEN. CALL LIGHT IS IN REACH. PATIENT HAS NO CURRENT CARE NEEDS.
--- NOTE | 2021-04-06 04:30 | NUR ---
PATIENT CONTINUES TO REST QUIETLY, RESPIRATIONS ARE REGULAR AND EVEN, AND EYES ARE CLOSED. PATIENT IN LOW FOWLERS POSITION AND CALL LIGHT IS IN REACH.
--- NOTE | 2021-04-06 05:50 | NUR ---
IN TO GET VITALS, I&Os DONE, FRESH ICE WATER, PT C/O TIAGO, RN MADE AWARE, NO FURTHER NEEDS AT THIS TIME
--- NOTE | 2021-04-06 06:35 | NUR ---
AM VS AND ASSESSMENT COMPLETE AND THE ONLY THING THAT CHANGED IN THE ASSESSMENT WAS PATIENT'S BOWEL SOUNDS ARE MORE ACTIVE NOW. PATIENT AGAIN SEVERELY NAUSEATED AND IV PROMETHAZINE GIVEN PER PROTOCAL IN 20MLS NS AND ON THE PUMP. IV ATIVAN ALSO GIVEN. PATIENT SAID SHE WAS ABLE TO GET SOME SLEEP AFTER HER LAST MEDICATION. LIGHTS TURNED DOWN AT PATIENT'S REQUEST AND CALL LIGHT IS IN REACH.
--- NOTE | 2021-04-06 08:36 | NUR ---
rn in room to assess pt and do morning med pass finishing breakfast states she feels nausea prn zofran given, no other needs at the moment
--- NOTE | 2021-04-06 11:00 | NUR ---
rn in room to give medication, resting comfortable, no other needs.
--- NOTE | 2021-04-06 11:29 | NUR ---
report recieved from night order selector RN, patient resting in bed call light within reach no needs at the moment.
--- NOTE | 2021-04-06 13:00 | NUR ---
rn in room to round on pt eating lunch prn phenegran given no other needs.
--- NOTE | 2021-04-06 13:44 | NUR ---
report recieved from night nurse no needs at the moment resting in bed call light within reach
--- NOTE | 2021-04-06 15:11 | NUR ---
PT UP WALKING IN THE HALLS ABLE TO AMBULATE INDEPENDENTLY, COMPLAINING OF FEELING NAUSEA ZOFRAN GIVEN, NO EMESIS.
--- NOTE | 2021-04-06 17:14 | NUR ---
RN IN ROOM TO ROUND ON PT, PT SITTING UP IN BED SAYS SHE FEELS SICK, PRN ATIVAN GIVEN, NO OTHER NEEDS AT THE MOMENT TRYING TO EAT DINNER
--- NOTE | 2021-04-06 18:55 | EKG ---
[facility] [address] [facility] [place], [place] [address] Signed Normal sinus rhythm Nonspecific T wave abnormality Abnormal ECG Confirmed by BERTO PADILLA DO ([id number]) on 04/06/2021 6:55:08 PM Electronically Signed By: BERTO PADILLA DO 04/06/21 1855 PATIENT NAME: NATE NOLAND Electrocardiogram DATE OF : 51 PHYSICIAN: BERTO PADILLA DO REPORT #: [id number] REPORT IS CONFIDENTIAL AND NOT TO BE RELEASED WITHOUT AUTHORIZATION
--- NOTE | 2021-04-06 19:28 | NUR ---
THIS RN RECEIVED SHIFT REPORT FROM TIFFANIE JOY. PATIENT RESTING QUIETLY IN BED AND TIFFANIE JOY HANGING NEW BAG OF IV FLUIDS. PATIENT HAS NO CURRENT CARE NEEDS. CALL LIGHT IS IN REACH.
--- NOTE | 2021-04-06 20:35 | NUR ---
PATIENT SLEEPING WHEN THIS RN CAME IN. PATIENT HAS VERY LITTLE NAUSEA AT THIS TIME AMD 4MG IV ZOFRAN WAS GIVEN. DISCUSSED WITH PATIENT THAT I COULD NOT GIVE THE PHENERGAN AND ATIVAN AT THE SAME TIME TONIGHT LIKE I DID ON MY PREVIOUS SHIFT PATIENT HAD REQUESTED AND THAT ALL NAUSEA MEDICATIONS NEEDED TO BE GIVEN AT SEPERATE TIMES. PATIENT VERBALIZED UNDERSTANDING, BUT IS WORRIED SHE WILL NOT BE ABLE TO SLEEP NOW. ASSESSMENT COMPLETE. VS STABLE EXCEPT FOR SOME HTN WHICH IS NOT HIGH ENOUGH TO CALL THE MD. PATIENT RESQUESTED A NEW CUP OF HOT CHOCOLATE AND THIS WAS GIVEN WITH SOME DRY TOAST PATIENT ALREADY HAD. PATIENT HAS NO OTHER NEEDS AT THIS TIME. CALL LIGHT IS IN REACH AND LIGHTS TURNED DOWN.
--- NOTE | 2021-04-06 21:52 | NUR ---
PATIENT CALLED AND IS NAUSEATED AGAIN AND WANTS TO GO TO SLEEP. 1MG IV ATIVAN GIVEN AND PATIENT'S WATER DUMPED AT HER REQUEST AND SHE IS GOING NPO AT THIS TIME. PATIENT HAS NO OTHER NEEDS AT THIS TIME AND CALL LIGHT IS IN REACH. PATIENT WILL CALL IF NAUSEA DOES NOT SUBSIDE.
--- NOTE | 2021-04-07 00:05 | NUR ---
PATIENT IS RESTING QUIETLY IN SEMI-FOWLERS POSITION. RESPIRATIONS ARE REGULAR AND EVEN, EYES ARE CLOSED, AND CALL LIGHT IN REACH. PATIENT HAS NO CURRENT CARE NEEDS AT THIS TIME.
--- NOTE | 2021-04-07 01:36 | NUR ---
PATIENT CALLED AND NAUSEA HAS NOT IMPROVED AND PATINE WANTS SOMETHING ELSE. 1MG IV ATIVAN GIVE IT SEEMS TO WORK THE BEST FOR PATIENT'S NAUSEA. PATIENT HAS NO OTHER CARE NEEDS AT THIS TIME. CALL LIGHT IS IN REACH.
--- NOTE | 2021-04-07 03:10 | NUR ---
PATIENT CALLED AND REMAINS NAUSEATED. 4MG IV ZOFRAN GIVEN. PATIENT ASKING WHEN SHE CAN HAVE THE ATIVAN AND PHENERGAN AGAIN. INFORMED THE PATIENT OF THE NEXT DOSE TIMES FOR BOTH THESE MEDICATIONS AND SHE IS WORRIED SHE DOES NOT THINK THE ZOFRAN WILL WORK. INFORMED PATIENT IF SHE IS NOT FEELING BETTER IN HALF AN HOUR WE WOULD LOOK AT CALLING THE MD. PATIENT AGREED WITH THIS PLAN. LIGHTS TURNED DOWN AND CALL SHAW KANG.
--- NOTE | 2021-04-07 04:20 | NUR ---
PATIENT UP WALKIING IN THE HALLS WITH C/O SEVERE NAUSEA. TOO SOON TO GIVE ANY MEDICATIONS YET. THIS RN CALLED AND ORDER GIVEN TO GIVE ATIVAN DOSE EARLY. PATIENT HEADED BACK TO HER ROOM AND THIS RN WILL MEET HER THERE.
--- NOTE | 2021-04-07 04:32 | NUR ---
ANSWERED CALL FROM DR PADILLA. NEW ORDER FOR DR GRIGGS CONSULT. DR PADILLA WILL CALL IN AM.
--- NOTE | 2021-04-07 04:42 | NUR ---
PATIENT GIVEN 1MG ATIVAN SIVP. PATIENT BACK IN BED AND AM ASSESSMENT COMPLETE, VS ARE STABLE, PATIENT VOIDING QUANTITY SUFFICIENT, CALL LIGHT IN REACH, AND LIGHTS TURNED DOWN AT PATIENT'S REQUEST. PATIENT WOULD LIKE TO NOT BE DISTURBED FOR LONG POSSIBLE.
--- NOTE | 2021-04-07 06:03 | NUR ---
CALL LIGHT ON. pt REQUESTED PRN NAUSEA MEDS. DISCUSSED NAUSEA MED MANAGEMENT. pt VERBALIZED UNDERSTANDING OF NEXT MEDICATION AND TIMING. NO FURTHER REQUESTS. CALL LIGHT WITHIN REACH. PRIMARY RN UPDATED.
--- NOTE | 2021-04-07 06:46 | NUR ---
PATIENT STILL NAUSEATED AND 12.5MG PHENERGAN IN 20MLS/NS ON THE IV PUMP OVER 10 MINUTES GIVEN WITH AM THYROID MED AND A SIP OF WATER. PATIENT REMAINS NPO OTHER BRAGG. PATIENT HOPES SHE IS GOING TO BE ABLE TO GET SOME SLEEP. CALL LIGHT IN REACH AND LIGHTS TURNED DOWN.
[2021-04-07] MEDS ORDERED: PROMETHAZINE HC25 M1 PO (08:39)
[2021-04-07] MEDS ORDERED: LORAZEPAM1 MG PO (08:41)
[2021-04-07] MEDS ORDERED: ONDANSETRON ODT8 MG PO (08:42)
[2021-04-07] MEDS ORDERED: LISINOPRIL20 MG PO (08:43)
== END 2021-04-07 11:25 | disposition home or self-care (01) | DRG 644 ==
LOC: ED 14:17 → MS 18:54 → CCU 19:27 → MS 04-04 10:25
PROVIDERS: ADMIT Student in an Organized Health Care Education/Training Program; ATTEND Student in an Organized Health Care Education/Training Program
DX: E03.9 Hypothyroidism, unspecified (principal); B17.9 Acute viral hepatitis, unspecified; Z20.822 Contact with and (suspected) exposure to COVID-19; Z66 Do not resuscitate; E87.6 Hypokalemia; E86.0 Dehydration; I10 Essential (primary) hypertension; R00.1 Bradycardia, unspecified; E78.5 Hyperlipidemia, unspecified; K20.90 Esophagitis, unspecified without bleeding; K29.50 Unspecified chronic gastritis without bleeding; L98.499 Non-pressure chronic ulcer of skin of other sites with unspecified severity; G89.29 Other chronic pain; K76.9 Liver disease, unspecified; E78.00 Pure hypercholesterolemia, unspecified; F17.200 Nicotine dependence, unspecified, uncomplicated; Z90.49 Acquired absence of other specified parts of digestive tract; Z90.710 Acquired absence of both cervix and uterus; Z96.652 Presence of left artificial knee joint; Z98.890 Other specified postprocedural states; Z88.8 Allergy status to other drugs, medicaments and biological substances; Z79.899 Other long term (current) drug therapy
CPT/HCPCS: 74177; 80048; 80053; 80074; 80076; 81001; 82040; 82247; 82248; 83735; 84075; 84155; 84443; 84450; 84460; 85025; 93005; 93010; C9803; J1630; J1650; J2060; J2405; J2550; J2765; J3480; J7040; J7121; Q9967; U0003

== ENCOUNTER 2022-03-13 10:56 | Day surgery (SDC) | payer MEDICARE ==
[~2022-03-13] VITALS: Ht 160 cm; Wt 51.8 kg
[~2022-03-13 10:56] MED LIST changes: +LISINOPRIL20 MG PO; +PROMETHAZINE HC25 M1 PO
[2022-03-13] MEDS ORDERED: AMBIEN5 MG PO (11:30)
--- NOTE | 2022-03-13 14:00 | NUR ---
1330 pt updated on wait. denies any needs. iv patent.
--- NOTE | 2022-03-13 14:39 | NUR ---
03/13/22 1439 Saloni Watkins 1435 PATIENT ARRIVES TO PACU RESTING WITH EYES CLOSED. AWAKENS WITH VERBAL STIMULI, BACK TO SLEEP WHEN NOT STIMULATED. RESP EVEN AND UNLABORED, NC AT 2 LITERS TURNED OFF ON ARRIVAL TO PACU.
--- NOTE | 2022-03-18 09:35 | OR ---
[facility] [address] [place], [place] [address] Signed DATE OF OPERATION: 03/13/2022 SURGEON: Reanna Hicks MD PREOPERATIVE DIAGNOSES: Weight loss (down to 114 pounds), episodic right upper abdominal pain. Previous biliary evaluation negative and CT scan negative March 2021. POSTOPERATIVE DIAGNOSES: 1. Small hiatal hernia. 2. Mild antral gastritis. PROCEDURE: Esophagogastroduodenoscopy with biopsy. ANESTHESIA: Intravenous sedation; fentanyl 100 mcg and Versed 5 mg. 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 She is well known to me from the past and is a patient of Dr. Bhakta. She was referred for upper endoscopy to better characterize the issue for poor appetite. She has undergone biliary evaluation in the past, which was negative including CCK-HIDA test and ultrasound. A CT scan was performed in recent times, which was essentially negative. She does have episodic right upper abdominal pain that is not consistent by any means. Mostly she has poor appetite for which her weight loss could be attributed. She has had thickening of the duodenum and the esophagus on previous imaging studies and she is referred for upper endoscopy to better characterize the problem and assess for neoplastic disease. FINDINGS: There is no evidence of malignancy of esophagus, stomach or duodenum. She did have a small hiatal hernia. There was no evidence of Gann's epithelium. There was mild antral gastritis but certainly no ulceration. The duodenum appeared normal. CLOtest was negative 15 minutes post procedure. DESCRIPTION OF PROCEDURE: The patient was brought to the endoscopy suite and placed in lateral decubitus position, given intravenous sedation to the point of slurred speech and nystagmus. A bite block was placed. An Olympus video upper endoscope was passed in the hypopharynx. The vocal Electronically Signed By: REANNA HICKS MD 03/18/22 0935 PATIENT NAME: NATE NOLAND OPERATIVE REPORT DATE OF : 51 REPORT #: [id number] PHYSICIAN: REANNA HICKS MD PCP: KALA BHAKTA MD REPORT IS CONFIDENTIAL AND NOT TO BE RELEASED WITHOUT AUTHORIZATION [facility] [address] [place], [place] [address] Signed cords were normal. The posterior commissure had inflammatory changes consistent with probable reflux. The scope was advanced to the esophagus, throughout its length it appeared essentially normal. There was no Gann's epithelium, stricture, neoplasm or varices. The scope was passed to the stomach, which was insufflated with air. Rugal folds appeared normal. There was no sign of excessive bile. The antrum had mild inflammatory change with no sign of ulcer or neoplasm. The pylorus was normal. Scope was passed through into the duodenum, which was normal. Biopsies were taken of the 2nd and bulbar portions. The scope was withdrawn and biopsies taken of the antrum and more proximal stomach. There did appear to be mild antral gastritis and possibly some mild proximal gastritis. Rugal folds were normal. Retroflexed view did confirm a small hiatal hernia. Scope was withdrawn and biopsies taken of the distal esophagus and mid esophagus as well. Scope was removed and the patient was taken to the recovery room in good condition. CONCLUDING DIAGNOSIS: Hiatal hernia with mild antral gastritis. PLAN: We will add Carafate to her current regimen of Prilosec daily. We will give 1 g p.o. q.i.d. on empty stomach and see back in three or four weeks. We will reassess regarding possible biliary symptoms as well. MD CLINT Sahu/CARLOSL /[id number] cc: Kala Bhakta MD Copies: KALA BHAKTA MD ~ Electronically Signed By: REANNA HICKS MD 03/18/22 0935 PATIENT NAME: NATE NOLAND OPERATIVE REPORT DATE OF : 51 REPORT #: [id number] PHYSICIAN: REANNA HICKS MD PCP: KALA BHAKTA MD REPORT IS CONFIDENTIAL AND NOT TO BE RELEASED WITHOUT AUTHORIZATION
--- NOTE | 2022-03-19 11:11 | PATH ---
[facility] [address] [place], [place] [address] Signed SPECIMEN(S): A DUODENAL BIOPSY SPECIMEN(S): B ANTRUM/PYLORUS BIOPSY SPECIMEN(S): C DISTAL ESOPHAGEAL BIOPSY SPECIMEN(S): D PROXIMAL STOMACH BIOPSY SPECIMEN(S): E MID ESOPHAGEAL BIOPSY SPECIMEN SOURCE: A. DUODENAL BIOPSY B. ANTRUM/PYLORUS BIOPSY C. DISTAL ESOPHAGEAL BIOPSY D. PROXIMAL STOMACH BIOPSY E. MID ESOPHAGEAL BIOPSY CLINICAL HISTORY: Pre: Upper RQ pain, weight loss. Post: Hiatal hernia, mild antral gastritis. FINAL PATHOLOGIC DIAGNOSIS: A. Duodenum, biopsy: - No significant histopathology. B. Antrum/pylorus, biopsy: - No significant histopathologic alterations. C. Distal esophagus, biopsy: - Chronic esophagitis. - No evidence of Gann's esophagus. D. Proximal stomach, biopsy: - No significant histopathologic alterations. E. Mid esophagus, biopsy: - Chronic esophagitis. - No evidence of Gann's esophagus. - One fragment of normal appearing gastric mucosa is present. COMMENT: Regarding specimen A, the sections from the duodenal biopsy show portions of duodenal mucosa with long finger-like villi. There is no villous atrophy, crypt hyperplasia or intraepithelial lymphocytosis, making a diagnosis of celiac disease unlikely. There is no evidence of peptic duodenitis, microorganisms, abnormal infiltrates or neoplasia. Regarding specimen B, the sections through the gastric biopsies show fragments of histologically unremarkable antral mucosa. There is no evidence of acute or chronic inflammation. There is no PATIENT NAME: NATE NOLAND PATHOLOGY DATE OF : 51 REPORT #: [id number] PHYSICIAN: DAYANNA HOLDEN PCP: KALA NGUYEN MD REPORT IS CONFIDENTIAL AND NOT TO BE RELEASED WITHOUT AUTHORIZATION [facility] [address] [place], [place] [address] Signed evidence of H. pylori, intestinal metaplasia, abnormal infiltrates or neoplasia. Regarding specimen C, the biopsy contains reactive appearing squamous mucosa. Chronic inflammation is present. No gastric glandular mucosa is identified. The changes are nonspecific and can be seen in a variety of settings including infections, gastroesophageal reflux disease or other forms of esophagitis. Regarding specimen D, the sections through the gastric biopsies show fragments of histologically unremarkable oxyntic mucosa. There is no evidence of acute or chronic inflammation. There is no evidence of H. pylori, intestinal metaplasia, abnormal infiltrates or neoplasia. Regarding specimen E, the biopsy contains reactive appearing squamous mucosa. Chronic inflammation is present. The changes are nonspecific and can be seen in a variety of settings, including infections and gastroesophageal reflux disease. There is a small fragment of gastric mucosa present. It is histologically unremarkable. There is no evidence of intestinal metaplasia. There is no evidence of H. pylori. TWK:[facility]:C2NR MICROSCOPIC EXAMINATION: Histologic sections of all submitted blocks are examined by light microscopy. These findings, together with the gross examination, support the pathologic diagnosis. GROSS DESCRIPTION: Five specimens are received in five containers, labeled "DM." A. The specimen, labeled "#1 duodenal biopsy," is received in formalin and consists of two fragments of quinones soft tissue, measuring 0.3-0.4 cm in greatest dimension. The specimen is entirely submitted in cassette (A1). B. The specimen, labeled "#2 antrum/pylorus biopsy," is received in formalin and consists of two fragments of quinones tissue, measuring 0.3-0.6 cm in greatest dimension. The specimen is entirely submitted in cassette (B1). C. The specimen, labeled "#3 distal esophageal biopsy," is received in formalin and consists of two fragments of quinones soft tissue, each measuring 0.5 cm in greatest dimension. The specimen is entirely submitted in cassette (C1). D. The specimen, labeled "#4 proximal stomach biopsy," is received in formalin PATIENT NAME: NATE NOLAND PATHOLOGY DATE OF : 51 REPORT #: [id number] PHYSICIAN: DAYANNA PATHOLOGY PCP: KALA NGUYEN MD REPORT IS CONFIDENTIAL AND NOT TO BE RELEASED WITHOUT AUTHORIZATION [facility] [address] [place], [place] [address] Signed and consists of a single fragment of quinones soft tissue, measuring 0.3 cm greatest dimension. The specimen is entirely submitted in cassette (D1). E. The specimen, labeled "#5 mid esophageal biopsy," is received in formalin and consists of three fragments of quinones soft tissue, that range in size from 0.3-0.4 cm in greatest dimension. The specimen is entirely submitted in cassette (E1). HH (under the direct supervision of a pathologist) The Gross Description was prepared using a voice recognition system. The report was reviewed for accuracy; however, sound-alike word errors, addition and/or deletions may occur. If there is any question about this report, please contact Client Services. PERFORMING LABORATORY: The technical component was performed by [employer], [address] [place] [id number] (CLIA# [id number]). The professional interpretation was performed by [employer] Pathology, [facility], [address] [place] [address] (CLIA#: [id number]). Diagnostician: Blair Salinas MD Pathologist Electronically Signed 03/19/2022 Copies: ~ PATIENT NAME: NATE NOLAND PATHOLOGY DATE OF : 51 REPORT #: [id number] PHYSICIAN: DAYANNA PATHOLOGY PCP: KALA NGUYEN MD REPORT IS CONFIDENTIAL AND NOT TO BE RELEASED WITHOUT AUTHORIZATION
== END 2022-03-13 15:00 | disposition home or self-care (01) ==
LOC: DS 10:56 → OPS 10:56 → DS 11:00 → OPS 12:00
PROVIDERS: ATTEND Surgery
PROC: 0DB98ZX Excision of Duodenum, Via Natural or Artificial Opening Endoscopic, Diagnostic (ICD-10-PCS; 2022-03-13)
PROC: 0DB18ZX Excision of Upper Esophagus, Via Natural or Artificial Opening Endoscopic, Diagnostic (ICD-10-PCS; 2022-03-13)
PROC: 0DB28ZX Excision of Middle Esophagus, Via Natural or Artificial Opening Endoscopic, Diagnostic (ICD-10-PCS; 2022-03-13)
PROC: 0DB38ZX Excision of Lower Esophagus, Via Natural or Artificial Opening Endoscopic, Diagnostic (ICD-10-PCS; 2022-03-13)
PROC: 0DB68ZX Excision of Stomach, Via Natural or Artificial Opening Endoscopic, Diagnostic (ICD-10-PCS; principal; 2022-03-13 12:00)
DX: K29.70 Gastritis, unspecified, without bleeding (principal); R10.11 Right upper quadrant pain; K44.9 Diaphragmatic hernia without obstruction or gangrene; E11.9 Type 2 diabetes mellitus without complications; E78.5 Hyperlipidemia, unspecified; R59.0 Localized enlarged lymph nodes; R63.4 Abnormal weight loss; Z72.0 Tobacco use; K20.90 Esophagitis, unspecified without bleeding
CPT/HCPCS: 99153; G0500; J2250; J3010; J7121